=== PATIENT | male | born 1960 | race Two or more races ===

== ENCOUNTER 2021-03-19 21:11 | Emergency (ER) | payer OTHER ==
[~2021-03-19] VITALS: Ht 175.3 cm; Wt 85.7 kg
[2021-03-19] MEDS ORDERED: TOPROL XL50 M1 (21:36)
[2021-03-19] MEDS ORDERED: PROTONIX40 M1 (21:36)
[2021-03-19] MEDS ORDERED: COZAAR50 MG (21:36)
[2021-03-19] MEDS ORDERED: ATORVASTATIN CA10 MG (21:36)
[2021-03-19] MEDS ORDERED: BRILINTA60 MG (21:36)
[2021-03-19] MEDS ORDERED: FORTAMET1000 MG (21:37)
[2021-03-19] MEDS ORDERED: GLYXAMBI 25 MG1 EACH (21:37)
[2021-03-19] MEDS ORDERED: ADULT LOW DOSE81 M1 (21:37)
[2021-03-19] MEDS ORDERED: CIALIS5 MG (21:38)
[2021-03-20] MEDS ORDERED: MUCINEX D ER 11 EACH PO (00:41)
[2021-03-20] MEDS ORDERED: VITAMIN C WIT1000 MG PO (00:41)
[2021-03-20] MEDS ORDERED: ZYRTEC10 MG PO (00:41)
== END 2021-03-20 03:04 | disposition home or self-care (01) ==
LOC: ER 21:11
DX: J06.9 Acute upper respiratory infection, unspecified (principal)